=== PATIENT | female | born 1940 | race Caucasian/White ===

== ENCOUNTER → 2018-01-18 | Outpatient (CLI) | payer MEDICARE ==
[~2018-01-18] MED LIST: ASPI81TA94 PO; ATEN100T93 PO; CALC600T63 PO; CHOL500045 PO; LEVO88TA45 PO; POTA-23 PO; [UNRECOGNIZED DRUG - CODE] PO
--- NOTE | 2018-01-18 10:29 | RADIOLOGY IMAGING REPORT ---
[place] [facility] [place] Lillian Garcia : 1940 MR: [id number] V: [id number] EXAM DATE: ORDERING PHYSICIAN: SHAN MURILLO TECHNOLOGIST: Location: [facility] Patient: Lillian Garcia : 1940 Visit/Account:[id number] Date of Sevice: 01/18/2018 Exam type: 3 views lumbar spine History: Low back pain Comparison: None. Findings: There are 5 nonrib-bearing lumbar vertebral bodies with a mild rightward scoliosis. Patient is osteo penic. AP alignment is appropriate. Endplate degenerative changes are noted. Surrounding soft tissues demonstrate vascular calcifications. IMPRESSION: 1. Mild scoliosis with degenerative changes and osteopenia. Report Dictated By: Ike Juarez MD at 01/18/2018 10:20 AM Report E-Signed By: Ike Juarez MD at 01/18/2018 10:24 AM WSN:[email or web address]
== END ==
LOC: RAD 09:31
PROVIDERS: ATTEND Family Medicine
DX: M41.86 Other forms of scoliosis, lumbar region (principal); M85.88 Other specified disorders of bone density and structure, other site
CPT/HCPCS: 72100

== ENCOUNTER → 2018-04-05 | Outpatient (CLI) | payer MEDICARE ==
--- NOTE | 2018-04-05 13:16 | RADIOLOGY IMAGING REPORT ---
FACILITY: [facility] PATIENT NAME: ROSEMARIE TALAMANTES : [id number] MR: [id number] V: [id number] EXAM DATE: [id number] ORDERING PHYSICIAN: SHAN MURILLO TECHNOLOGIST: Candelaria Bingham PROCEDURE:BILATERAL DIGITAL SCREENING MAMMOGRAM WITH CAD ASSISTED INTERPRETATION & 3D TOMOSYNTHESIS COMPARISON:04/01/17 & priors back to 09/14/2014 INDICATIONS:SCREENING FINDINGS: Breast parenchyma has scattered fibroglandular densities. There are no mammographic findings concerning for malignancy. There is no significant interval change. DIAGNOSTIC CATEGORY 1--NEGATIVE. RECOMMENDATIONS: ROUTINE MAMMOGRAM AND CLINICAL EVALUATION. IMPRESSION: BIRADS 1: Negative. Dictated by: Xavi Singh on 04/05/2018 at 10:48 Transcribed by: ROYAL on 04/05/2018 at 12:53 Approved by: Xavi Singh on 04/05/2018 at 13:15 [facility]
== END ==
LOC: MAMO 00:30
PROVIDERS: ATTEND Family Medicine
DX: Z12.31 Encounter for screening mammogram for malignant neoplasm of breast (principal)
CPT/HCPCS: 77063; 77067

== ENCOUNTER → 2019-04-25 | Outpatient (CLI) | payer MEDICARE ==
--- NOTE | 2019-04-26 10:48 | RADIOLOGY IMAGING REPORT ---
FACILITY: [facility] [place] PATIENT NAME: ROSEMARIE TALAMANTES : [id number] MR: [id number] V: [id number] EXAM DATE: [id number] ORDERING PHYSICIAN: SHAN MURILLO TECHNOLOGIST: Candelaria Bingham PROCEDURE: BILATERAL DIGITAL SCREENING MAMMOGRAM WITH CAD ASSISTED INTERPRETATION & 3D TOMOSYNTHESIS REASON FOR STUDY: Screening FAMILY HISTORY OF BREAST CANCER: 2 Maternal Aunts & a Paternal Aunt BREAST PROCEDURES/TREATMENTS: None COMPARISON: 04/05/18, 04/01/17, 03/17/16, 03/13/15, 09/13/14, 03/09/14 VIEWS OBTAINED: Bilateral 2D & 3D full field CC & MLO projections BREAST DENSITY: There are scattered areas of fibroglandular density throughout the breasts. MAMMOGRAM FINDINGS: The parenchymal pattern has remained stable allowing for difference in mammographic technique & patient positioning. IMPRESSION: BIRADS 1: Negative. DIAGNOSTIC CATEGORY 1--NEGATIVE. RECOMMENDATIONS: ROUTINE MAMMOGRAM AND CLINICAL EVALUATION. Dictated by: Carlyn Sher M.D. on 04/25/2019 at 10:16 Transcribed by: ROYAL on 04/25/2019 at 13:43 Approved by: Carlyn Sher M.D. on 04/26/2019 at 10:46 [facility]
== END ==
LOC: MAMO 00:14
PROVIDERS: ATTEND Family Medicine
DX: Z12.31 Encounter for screening mammogram for malignant neoplasm of breast (principal)
CPT/HCPCS: 77063; 77067